=== PATIENT | male | born 1980 | race Caucasian/White ===

== ENCOUNTER 2021-10-16 12:14 | Emergency (ER) | payer OTHER ==
[~2021-10-16] VITALS: Ht 188 cm; Wt 105.6 kg
[2021-10-16 13:00] LABS: BASO # 0.1 10^3/uL (0.0-0.2); BASO % 0.7 % (0.0-1.0); EOS # 0.1 10^3/uL (0.0-0.5); HEMOGLOBIN 15.7 g/dl (13.5-17.5); MEAN CORPUSCULAR HEMOGLOBIN 32.7 pg (27.0-33.0); MEAN CORPUSCULAR HGB CONC 36.5 g/dl (32.0-36.5); MEAN CORPUSCULAR VOLUME 89.6 fl (80.0-96.0); MONO # 0.4 10^3/uL (0.0-0.8); MONO % 6.5 % (2.0-8.0); NEUTROPHILS # 4.1 10^3/uL (1.5-8.5); NEUTROPHILS % 61.5 % (36.0-66.0); PLATELET COUNT, AUTOMATED 213 10^3/uL (150-450); WHITE BLOOD COUNT 6.7 10^3/uL (4.0-10.0)
[2021-10-16 13:09] LABS: INR 0.89; PROTHROMBIN TIME 12.4 SECONDS (12.7-14.5)
[2021-10-16 13:32] LABS: CK-MB VALUE MASS 3.3 NG/ML (<3.6); MB/CK RELATIVE INDEX 1.63 (< OR =4)
[2021-10-16 13:34] LABS: ALBUMIN 4.2 GM/DL (3.2-5.2); ALT/SGPT 54 U/L (12-78); BILIRUBIN,DIRECT 0.2 MG/DL (0.0-0.2); BILIRUBIN,TOTAL 0.5 MG/DL (0.2-1.0); BLOOD UREA NITROGEN 18 MG/DL (7-18); CALCIUM LEVEL 10.1 MG/DL (8.5-10.1); CARBON DIOXIDE LEVEL 26 MEQ/L (21-32); CHLORIDE LEVEL 108 MEQ/L (98-107); CREATININE FOR GFR 1.15 MG/DL (0.70-1.30); GLOMERULAR FILTRATION RATE > 60.0 (>60); GLUCOSE, FASTING 104 MG/DL (70-100); LIPASE 205 U/L (73-393); POTASSIUM SERUM 4.4 MEQ/L (3.5-5.1); SODIUM LEVEL 141 MEQ/L (136-145); TOTAL PROTEIN 7.5 GM/DL (6.4-8.2)
[2021-10-16 14:06] LABS: MAGNESIUM LEVEL 2.4 MG/DL (1.8-2.4)
[2021-10-16 14:45] VITALS: BP 148/84
== END 2021-10-16 14:55 | disposition home or self-care (01) ==
LOC: M ED 12:14
DX: I49.3 Ventricular premature depolarization (principal); R00.2 Palpitations; Z90.89 Acquired absence of other organs

== ENCOUNTER 2022-05-08 10:59 | Emergency (ER) | payer OTHER ==
[~2022-05-08] VITALS: Ht 188 cm; Wt 108.3 kg
[2022-05-08] MEDS ORDERED: METH-1165 PO (13:34)
[2022-05-08] MEDS ORDERED: KETO10TAB PO (13:34)
[2022-05-08] MEDS ORDERED: KETOROLAC 30 MG/ML 1ML VIAL IM ONE (13:35)
[2022-05-08 13:59] VITALS: BP 157/87
== END 2022-05-08 14:01 | disposition home or self-care (01) ==
LOC: M ED 10:59
DX: M62.830 Muscle spasm of back (principal); M54.9 Dorsalgia, unspecified; S49.91XA Unspecified injury of right shoulder and upper arm, initial encounter; M25.521 Pain in right elbow; W13.2XXA Fall from, out of or through roof, initial encounter; Y92.009 Unspecified place in unspecified non-institutional (private) residence as the place of occurrence of the external cause; Z79.899 Other long term (current) drug therapy

== ENCOUNTER 2022-08-17 06:44 | Day surgery (SDC) | payer OTHER ==
[~2022-08-17] VITALS: Ht 188 cm; Wt 102.4 kg
[~2022-08-17 06:44] MED LIST: KETO10TAB PO; KETO2SHA8 TOP; METH-1165 PO; NAPR-885 PO; NICO2GUM41 PO; NS 1,000 ML IV ONE
[2022-08-17] MEDS ORDERED: propofoL 200 MG/20 ML VIAL As Ordered ONE (08:06)
[2022-08-17] MEDS ORDERED: LIDOCAINE 2% 100MG/5ML SDV (FOR ANES.) As Ordered ONE (08:06)
[2022-08-17 08:20] VITALS: BP 124/63
== END 2022-08-17 08:24 | disposition home or self-care (01) ==
LOC: M OPP 06:44
PROVIDERS: ATTEND Internal Medicine Gastroenterology
DX: Z12.11 Encounter for screening for malignant neoplasm of colon (principal); K63.5 Polyp of colon; K64.8 Other hemorrhoids; K64.4 Residual hemorrhoidal skin tags